=== PATIENT | male | born 1980 | race Caucasian/White ===

== ENCOUNTER 2020-12-19 13:12 | Emergency (ER) | payer OTHER, SELFPAY ==
[2020-12-19 13:14] VITALS: BP 122/75; PULSE 86; RESP 24; TEMP 36.9; O2SAT 97
--- NOTE | 2020-12-19 13:40 | ED_ITS ---
HPI - Fall General Chief Complaint: Fall Stated Complaint: fell at work, landed on tailbone, back+head pain Time Seen by Provider: 12/19/20 13:28 Source: patient Mode of arrival: Ambulatory Limitations: no limitations History of Present Illness HPI Narrative: Patient is a 40-year-old male here for evaluation of injuries that he sustained while he was at work. 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 He was walking down some wood stairs that were outside that were slightly wet and he slipped and fell and tumbled down some stairs. He did not hit his head but did injure his lower back and his left wrist. He was able to get up and walk afterwards. Shortly later he again slipped this time falling and hitting his head. There was no loss of consciousness. It quite a bit of discomfort in his legs afterwards. Specifically his right leg. He does have a history of sciatic pain in his right leg in the seems to have exacerbated that. He also has a history of migraines and the fall triggered a migraine. Also has a history of anxiety and started having panic attack afterwards as well. Related Data Previous Rx's Medication Instructions Recorded oxycodone-acetaminophen [Percocet] 1 tab PO Q8H PRN #10 tab 12/19/20 Allergies Allergy/AdvReac Type Severity Reaction Status Date / Time INGREDIENT: NKDA - NO KNOWN Allergy Unknown Uncoded 11/05/17 12:04 DRUG ALLERGIES Review of Systems Constitutional Constitutional: Denies fever(s) and Reports headache(s) Eyes Eyes: Denies change in vision ENT Ears, Nose, Mouth, and Throat: Denies vertigo, Denies dizziness, Reports headache(s) and Denies sore throat Cardiovascular Cardiovascular: Denies chest pain and Denies dyspnea Respiratory Respiratory: Denies dyspnea Gastrointestinal Gastrointestinal: Denies abdominal pain Musculoskeletal Musculoskeletal: Reports back pain and Reports radiating pain into limb Comments: Left wrist pain Integumentary/Breasts Skin/Breast: Denies lesions and Denies rash Neurologic Neurologic: Denies vertigo, Denies dizziness and Reports headache(s) Psychiatric Psychiatric: Reports anxiety Endocrine Endocrine: Reports system reviewed and no additional complaints, except as documented Hematologic/Lymphatic On Anticoagulants: No Allergic/Immunologic Allergic/Immunologic: Reports system reviewed and no additional complaints, except as documented Patient History Medical History Anxiety Low back pain Migraines Social History Smoking Status: Never smoker Smoking Status: Never smoker Exam Initial Vital Signs Initial Vital Signs: Vital Signs Temperature 98.4 F 12/19/20 13:14 Pulse Rate 86 12/19/20 13:14 Respiratory Rate 24 12/19/20 13:14 Blood Pressure 122/75 12/19/20 13:14 Pulse Oximetry 97 12/19/20 13:14 Const General: cooperative and comfortable Limitations: mental status not altered HENMT Head: normal to inspection and normocephalic Chest Chest: No tenderness Resp Effort & Inspection: normal respiratory effort Auscultation: clear to auscultation bilaterally Cardio Rate: regular rate Rhythm: regular rhythm GI Inspection: non-distended Back/Spine/Pelvis Cervical Spine: No cervical muscular tenderness and No cervical spinal tenderness Thoracic/Lumbar Spine: paraspinal tenderness (Lumbar region on right), No thoracic spinal tenderness and No lumbar spinal tenderness Skin Lesions: no lesions Rashes: no rashes Neuro General: patient alert, patient awake and patient oriented x3 Gait: normal gait Extrem General: normal to inspection and capillary refill normal Other: Tenderness to palpation along the base of the 5th metacarpal. Psych Appearance: grossly normal and well kempt Scores GCS Alphonse coma scale eye opening: Spontaneous Greenwood coma scale verbal response: Orientated Alphonse coma scale motor response: Obey commands Greenwood coma scale total score: 15 Nexus Score for C-Spine Focal Neurologic deficit present: No Midline spinal tenderness present: No Altered level of conciousness present: No Intoxication present: No Distracting Injury Present: No Nexus Criteria for C-spine: 0 Course Orders Ordered: Discontinued Medications Diphenhydramine HCl (Diphenhydramine 50 Mg/Ml Vial) 25 mg IV NOW ONE Stop: 12/19/20 13:42 Last Admin: 12/19/20 14:43 Dose: 25 mg Documented by: ASOTN Hydromorphone HCl (Hydromorphone 1 Mg Inj) 1 mg IV NOW ONE Stop: 12/19/20 15:55 Last Admin: 12/19/20 16:10 Dose: 1 mg Documented by: ASTON Sodium Chloride (Normal Saline 0.9%) 1,000 mls @ 1,000 mls/hr IV BOLUS ONE Stop: 12/19/20 14:40 Last Infusion: 12/19/20 16:09 Dose: 0 mls/hr Documented by: Admin: 12/19/20 14:42 Dose: 1,000 mls/hr Documented by: ASTON Ketorolac Tromethamine (Ketorolac 30 Mg/Ml Vial) 30 mg IV NOW ONE Stop: 12/19/20 13:42 Last Admin: 12/19/20 14:43 Dose: 30 mg Documented by: ASTON Metoclopramide HCl (Metoclopramide 10 Mg/2 Ml Inj) 10 mg IV NOW ONE Stop: 12/19/20 13:42 Last Admin: 12/19/20 14:43 Dose: 10 mg Documented by: ASTON Vital Signs Vital signs: Vital Signs - 8 hr 12/19/20 13:14 Temperature 98.4 F Pulse Rate 86 Respiratory Rate 24 Blood Pressure 122/75 Pulse Oximetry 97 MDM - Fall Imaging Data Extremity x-ray #1: Radiologist's Impression: [address] [id number] ReportSigned Patient: Bjorn AntoineKushalR#: [id number]: 1980Acct:[id number]/Sex: 40 / MDate of Service: 12/19/20Loc: EDAccession Number: [id number] Procedure: XR hand LT min 3V Ordering Provider: Maikol Palomo D.O. PROCEDURE: XR HAND LT MIN 3V INDICATIONS: 5th metacarpal pain after fall TECHNIQUE: 3 views of the hand(s) acquired. COMPARISON: None. FINDINGS: Bones: No fractures or dislocations. Carpal bones are normally aligned. No suspicious bony lesions. Soft tissues: No suspicious soft tissue calcifications. IMPRESSION: No gross acute left hand fracture or dislocation. Dictated by: Marcial Hernandez M.D. on 12/19/2020 at 14:59 Approved by: Marcial Hernandez M.D. on 12/19/2020 at 15:00 Lumbar spine x-ray: Radiologist's Impression: [address] [id number] ReportSigned Patient: Bjorn AntoineKushalR#: [id number]: 1980Acct:[id number]/Sex: 40 / MDate of Service: 12/19/20Loc: EDAccession Number: [id number] Procedure: XR lumbar spine 2-3V Ordering Provider: Maikol Palomo D.O. PROCEDURE: XR LUMBAR SPINE 2-3V INDICATIONS: Lower back pain after fall TECHNIQUE: 3 views of the lumbar spine were acquired. COMPARISON: None. FINDINGS: Bones: 5 [id number] vertebrae are present. There is normal bony alignment. No vertebral body compression fractures. Mild degenerative endplate changes and bilateral facet arthrosis at L4-5 and L5-S1 levels are seen. No suspicious bony lesions. Soft tissues: Overlying bowel gas pattern is normal. No suspicious soft tissue calcifications. IMPRESSION: Mild degenerative endplate changes at L4-5 and L5-S1 levels with mild bilateral facet arthrosis. No compression fracture or spondylolisthesis. Dictated by: Marcial Hernandez M.D. on 12/19/2020 at 14:51 Approved by: Marcial Hernandez M.D. on 12/19/2020 at 14:59 MDM Narrative Medical decision making narrative: X-rays are unremarkable. Is having a migraine which he states is on of his typical migraines. This resolved with medication provided here in the ER. He states that he had only slight improvement of his right leg pain after medications. I have low suspicion for cauda equina. The rest of his physical exam is unremarkable. Low suspicion for pelvic fractures. His C-spine was cleared by nexus criteria. I feel we can hold on head CT. L and I paperwork was completed by patient. He was given return precautions and follow-up instructions. He expressed understanding and agreement. Discharge Plan Departure Patient Disposition: Home Clinical Impression: Lower back pain, Headache, Fall Instructions: How to Prevent Falls Activity Restrictions/Additional Instructions: I do recommend that you contact your primary provider for a follow-up. Return to the emergency department for any new or worsening symptoms. Prescriptions: New oxycodone-acetaminophen [Percocet] 5-325 mg tablet 1 tab PO Q8H PRN (Reason: pain) Qty: 10 RF: 0 Stand Alone Forms: Work Release Note
--- NOTE | 2020-12-19 14:39 | PC.NURSE ---
patient ambulated self to restroom. returned to room with urine sample. steady gate observed.
[2020-12-19] MEDS: SODIUM CHLORIDE 0.9% 1,000 ML 1000 ML IV (14:42)
[2020-12-19] MEDS: METOCLOPRAMIDE 10 MG/2 ML INJ IV (14:43)
[2020-12-19] MEDS: diphenhydrAMINE 50 MG/ML VIAL 25 MG IV (14:43)
[2020-12-19] MEDS: KETOROLAC 30 MG/ML VIAL IV (14:43)
--- NOTE | 2020-12-19 15:23 | PC.NURSE ---
no visible injury noted to tailbone.
[2020-12-19] MEDS: HYDROMORPHONE 1 MG INJ IV (16:10)
[2020-12-19 17:43] VITALS: BP 122/69; PULSE 77; RESP 16; O2SAT 99
== END 2020-12-19 17:45 | disposition home or self-care (01) ==
PROVIDERS: Emergency Provider Emergency Medicine
DX: M54.5 Low back pain (principal); M25.532 Pain in left wrist; R51.9 Headache, unspecified; W01.0XXA Fall on same level from slipping, tripping and stumbling without subsequent striking against object, initial encounter; Y99.0 Civilian activity done for income or pay
CPT/HCPCS: 36415; 72100; 73130; 96361; 96374; 96375; 99284; J1170; J1200; J1885; J2765

== ENCOUNTER 2020-12-22 11:04 | Emergency (ER) | payer OTHER, SELFPAY ==
[2020-12-22 11:05] VITALS: BP 138/86; PULSE 86; RESP 14; TEMP 36.7; O2SAT 99; BMI 37.5
--- NOTE | 2020-12-22 13:09 | ED.RECABL ---
HPI - Recheck/Abnormal Lab/Rx General Chief Complaint: Recheck/Abnormal Lab/Rx Stated Complaint: here friday for L&I, still in pain Time Seen by Provider: 12/22/20 13:08 Source: patient Mode of arrival: Ambulatory Limitations: no limitations History of Present Illness HPI narrative: Is a 40-year-old male who returns for low back/coccyx pain after an injury that was sustained while at work. Patient had a fall last Friday. He has had new bruising over the buttock he has significant pain with seated position but also with lifting his legs are crossing them he has pain not just in the coccyx but up into the L4-L5 region. Patient states he has some new numbness tingling sensation radiating down both legs. He is unsure but thinks maybe his right leg is slightly weaker than the left. Patient denies fevers. He denies other injury. No nausea or vomiting. No bowel or bladder incontinence. Patient denies any anticoagulants. He has been taking oxycodone p.o. which is helpful for the pain but still is quite uncomfortable. He has follow-up set up in the next week. According to his last visit he does have some history of sciatica in the right leg. He also has a history of migraines, anxiety and panic attacks. Patient denies any back surgery in the past. Allergies include Vicodin which makes him itchy. Related Data Home Medications Medication Instructions Recorded Confirmed alprazolam 0.5 mg PO TID PRN 12/22/20 12/22/20 trazodone 25 mg PO BEDTIME 12/22/20 12/22/20 Previous Rx's Medication Instructions Recorded oxycodone-acetaminophen [Percocet] 1 tab PO Q8H PRN #10 tab 12/19/20 docusate sodium [Colace] 100 mg PO DAILY #20 cap 12/22/20 hydroxyzine pamoate [Vistaril] 25 mg PO QID PRN #20 cap 12/22/20 oxycodone 5 mg PO Q6H PRN #20 tab 12/22/20 Allergies Allergy/AdvReac Type Severity Reaction Status Date / Time hydrocodone [From Vicodin] AdvReac Mild ITCHING Verified 12/22/20 11:17 Review of Systems Review of Systems ROS Unobtainable: All systems reviewed & are unremarkable except as noted in HPI and below Patient History Medical History Anxiety Low back pain Migraines Social History Smoking Status: Never smoker Smoking Status: Never smoker alcohol intake frequency: 0-2 drinks per day Substance Use Type: does not use Exam Narrative Exam Narrative: GENERAL: Alert and oriented x three, well-nourished male in mild to moderate distress. HEENT: Head normocephalic, atraumatic, EOMI, pupils reactive, face symmetric, moist mucous membranes NECK: Supple, full range of motion CARDIOVASCULAR: Regular rate and rhythm without murmurs, rubs or gallops. RESPIRATORY: Breath sounds equal bilaterally, no wheezes rales or rhonchi. ABDOMEN: Soft, nontender. Normoactive bowel sounds all 4 quadrants. No guarding or rebound, rigidity, no mass BACK: No cervical, thoracic vertebral point tenderness. Patient does have some tenderness all L4-L5 although greater over the sacrum and coccyx. Patient does have about 2 cm x 3 cm of bruising over the left buttock in almost vertical linear pattern all adjacent to the crease. There is no obvious hematoma palpated but there is some fullness to the upper buttocks. Patient is quite tender on digital rectal exam over the buttocks themselves when there is pressure from my hand but is nontender in the rectum patient has good muscle tone. Patient has normal range of motion, is able to roll himself over on the bed without any assistance. Muscle strength is 5/5 in lower extremities, DTRs are 2/4 bilateral lower extremities. Sensation is intact in the lower extremities. No saddle anesthesia. : No CVA tenderness EXTREMITIES: Normal range of motion, no clubbing or edema. Neurovascularly intact. NEUROLOGICAL: Cranial nerves II through XII grossly intact. Moving all extremities SKIN: Warm, dry, no petechiae, no rashes or lesions, no other lesions noted. Initial Vital Signs Initial Vital Signs: Vital Signs Temperature 98.1 F 12/22/20 11:05 Pulse Rate 86 12/22/20 11:05 Respiratory Rate 14 12/22/20 11:05 Blood Pressure 138/86 12/22/20 11:05 Pulse Oximetry 99 12/22/20 11:05 Course Orders Ordered: ED Orders 12/22/20 13:21 CT lumbar spine wo con Stat CT sacrum Stat Discontinued Medications Hydroxyzine Pamoate (Hydroxyzine Pamoate 25 Mg Capsule) 25 mg PO NOW ONE Stop: 12/22/20 13:22 Last Admin: 12/22/20 14:03 Dose: 25 mg Documented by: JESSICA Oxycodone HCl (Oxycodone Ir 5 Mg Tablet) 10 mg PO NOW ONE Stop: 12/22/20 14:01 Last Admin: 12/22/20 14:02 Dose: 10 mg Documented by: JESSICA Vital Signs Vital signs: Vital Signs - 8 hr 12/22/20 14:26 Pulse Rate 60 Blood Pressure 145/63 H Pulse Oximetry 99 MDM - Recheck/Abnormal Lab/Rx Imaging Data CT Lspine: Radiologist's Impression: [address] [id number] Scan ReportSigned Patient: Bjorn Antoine#: [id number]: 1980Acct:[id number]/Sex: 40 / MDate of Service: 12/22/20Loc: EDAccession Number: [id number] Procedure: CT lumbar spine wo con Ordering Provider: Roberta Null D.O. PROCEDURE: CT LUMBAR SPINE WO CON INDICATIONS: L4/L5 pain with coccyx pain, bruising, tingling both legs. TECHNIQUE: Noncontrast 3 mm thick sections acquired from the T12 level to the sacrum. Sagittal and coronal reformats were constructed. For radiation dose reduction, the following was used: automated exposure control. COMPARISON: None. FINDINGS: Image quality: Excellent. Bones: No fracture identified. Normal lumbar vertebral body height and alignment. Intervertebral disc spaces are congruent and maintained. No significant degenerative changes of the intervertebral disc spaces, end plates, or facets. Soft tissues: No retroperitoneal masses or hematomas. Visualized aorta is normal in caliber. IMPRESSION: No acute or otherwise significant finding. Dictated by: Jaden Conde M.D. on 12/22/2020 at 14:00 Approved by: Jaden Conde M.D. on 12/22/2020 at 14:01 CT sacrum: Radiologist's Impression: [address] [id number] Scan ReportSigned Patient: Bjorn Antoine#: [id number]: 1980Acct:[id number]/Sex: 40 / MDate of Service: 12/22/20Loc: EDAccession Number: [id number] Procedure: CT sacrum Ordering Provider: Roberta Null D.O. PROCEDURE: CT SACRUM INDICATIONS: L4/L5/sacrum/coccyx pain, tingling TECHNIQUE: Noncontrast 3 mm thick sections acquired through the sacrum and coccyx, with sagittal and oblique coronal reformats then constructed. For radiation dose reduction, the following was used: automated exposure control. COMPARISON: None. FINDINGS: Image quality: Excellent. Bones: There is an acute fracture of the 1st coccygeal segment, oriented obliquely, traversing the 1st coccygeal segment from anterior and superior to posterior and inferior. The fracture plane is best appreciated on series 8 images 29-31). The fracture is mildly comminuted. The fracture fragments are mildly displaced. No suspicious bony lesions. Sacroiliac joints appear intact bilaterally. The sacrum is intact. The remaining coccygeal elements are intact and in normal alignment. Soft tissues: Regional soft tissues are within normal limits IMPRESSION: Acute mildly displaced and minimally comminuted fracture of the 1st coccygeal segment. Dictated by: Jaden Conde M.D. on 12/22/2020 at 13:58 Approved by: Jaden Conde M.D. on 12/22/2020 at 14:00 [facility] Narrative Medical decision making narrative: 40-year-old male with recent traumatic fall with increasing pain, describes tingling sensations/numbness down his lower extremities. Patient's muscle strength is appropriate. Rectal exam does not show any loss of tone. He does not have any neurologic changes that would prompt me to order MRI at this time but CT was obtained as he did has some L4-L5 tenderness. Patient does not have any sacral or lumbar fractures. It is noted that he has accommodated coccygeal fracture which is likely the main source of his pain. Others potential the patient could have a bulged or herniated disc and was recommended to still follow up with L and I. All questions are answered return precautions discussed. Patient did request additional pain medication and did have improvement with the Vistaril as well. Was given additional 14 tablets. He only received 10 tablets on his initial vision on the . Discharge Plan Departure Patient Disposition: Home Clinical Impression: Closed fracture of coccyx Instructions: DI for Coccyx Fracture Activity Restrictions/Additional Instructions: Follow-up with L&I provider. If you would like do not already have orthopedic surgery follow-up this is available and referrals included below. Continue pain medication as prescribed. I would also recommend you take a stool softener such as Colace 1-2 times daily until stools are soft and regular. If your constipated this can make your pain worse narcotic pain medication does cause constipation. Prescriptions sent to [facility]. Continue to use a donut or pillow while seated, and sit in positions that are preferrable. Please return for fevers, rapidly worsening pain, loss of sensation, inability to lift or move your legs, loss of bowel or bladder control or incontinence, or other new or concerning symptoms. Prescriptions: New docusate sodium [Colace] 100 mg capsule 100 mg PO DAILY Qty: 20 RF: 0 oxycodone 5 mg tablet 5 mg PO Q6H PRN (Reason: pain) Qty: 20 RF: 0 hydroxyzine pamoate [Vistaril] 25 mg capsule 25 mg PO QID PRN (Reason: muscle spasm) Qty: 20 RF: 0 No Action oxycodone-acetaminophen [Percocet] 5-325 mg tablet 1 tab PO Q8H PRN (Reason: pain) Qty: 10 RF: 0 trazodone 50 mg tablet 25 mg PO BEDTIME RF: 0 alprazolam 0.5 mg tablet 0.5 mg PO TID PRN (Reason: Anxiety) RF: 0 Referrals: Luz Elena Ba MD [Physician] - Roberta Luke DO [Primary Care Provider] -
--- NOTE | 2020-12-22 13:21 | DI.CT.S_ITS ---
PROCEDURE: CT SACRUM INDICATIONS: L4/L5/sacrum/coccyx pain, tingling TECHNIQUE: Noncontrast 3 mm thick sections acquired through the sacrum and coccyx, with sagittal and oblique coronal reformats then constructed. For radiation dose reduction, the following was used: automated exposure control. COMPARISON: None. FINDINGS: Image quality: Excellent. Bones: There is an acute fracture of the 1st coccygeal segment, oriented obliquely, traversing the 1st coccygeal segment from anterior and superior to posterior and inferior. The fracture plane is best appreciated on series 8 images 29-31). The fracture is mildly comminuted. The fracture fragments are mildly displaced. No suspicious bony lesions. Sacroiliac joints appear intact bilaterally. The sacrum is intact. The remaining coccygeal elements are intact and in normal alignment. Soft tissues: Regional soft tissues are within normal limits IMPRESSION: Acute mildly displaced and minimally comminuted fracture of the 1st coccygeal segment. Dictated by: Jaden Conde M.D. on 12/22/2020 at 13:58 Approved by: Jaden Conde M.D. on 12/22/2020 at 14:00
--- NOTE | 2020-12-22 13:21 | DI.CT.S_ITS ---
PROCEDURE: CT LUMBAR SPINE WO CON INDICATIONS: L4/L5 pain with coccyx pain, bruising, tingling both legs. TECHNIQUE: Noncontrast 3 mm thick sections acquired from the T12 level to the sacrum. Sagittal and coronal reformats were constructed. For radiation dose reduction, the following was used: automated exposure control. COMPARISON: None. FINDINGS: Image quality: Excellent. Bones: No fracture identified. Normal lumbar vertebral body height and alignment. Intervertebral disc spaces are congruent and maintained. No significant degenerative changes of the intervertebral disc spaces, end plates, or facets. Soft tissues: No retroperitoneal masses or hematomas. Visualized aorta is normal in caliber. IMPRESSION: No acute or otherwise significant finding. Dictated by: Jaden Conde M.D. on 12/22/2020 at 14:00 Approved by: Jaden Conde M.D. on 12/22/2020 at 14:01
[2020-12-22] MEDS: OXYCODONE IR 5 MG TABLET 10 MG PO (14:02)
[2020-12-22] MEDS: hydrOXYzine pamoate 25 MG CAPSULE PO (14:03)
[2020-12-22 14:26] VITALS: BP 145/63; PULSE 60; O2SAT 99
== END 2020-12-22 14:27 | disposition home or self-care (01) ==
PROVIDERS: Emergency Provider Emergency Medicine; PCP Family Medicine
DX: S32.2XXA Fracture of coccyx, initial encounter for closed fracture (principal); R20.2 Paresthesia of skin; W19.XXXA Unspecified fall, initial encounter
CPT/HCPCS: 72131; 99284

== ENCOUNTER 2021-05-19 18:39 | Emergency (ER) | payer OTHER, SELFPAY ==
[2021-05-19 18:56] VITALS: BP 132/90; PULSE 89; RESP 22; TEMP 36.8; O2SAT 97; BMI 34.9
--- NOTE | 2021-05-19 19:26 | ED.PSYCH ---
HPI - Psych <Maikol Palomo, DO - Last Filed: 05/20/21 19:25> General Chief Complaint: Psychiatric Symptoms Stated Complaint: SUICIDAL THOUGHTS Time Seen by Provider: 05/19/21 19:22 Source: patient Mode of arrival: Ambulatory History of Present Illness HPI Narrative: Patient is a 41-year-old male. Has a prior history of mental health issues. Does see a psychiatrist. His mental health medications are managed by his primary doctor. Patient states that approximately 1 week ago his left him. They have had some marital issues in the past but thinks became more final 1 week ago. He has also been on disability from work secondary to an accident that he had several weeks ago. He also ran out of his lamotrigine on Friday. He was at 100 mg a day of this. He states that the prescription ran out. He had no refills him when he contacted to get it refilled the doctor was on vacation. He stated that when stay is when things started to become much worse. His anxiety and depression became worse. He did consider driving to the [employer] and jumping off of it however his sister called him and he spent a long time talking over the phone. He has not had suicidal ideation as bad as that evening but things still difficult for him. He stated that today he started to have thoughts about his life and about killing himself so he decided to come to the emergency department for evaluation. Related Data Home Medications Medication Instructions Recorded Confirmed alprazolam 0.5 mg tablet 0.5 mg PO TID PRN 12/22/20 05/20/21 trazodone 50 mg tablet 25 mg PO BEDTIME 12/22/20 05/20/21 buspirone 7.5 mg tablet 7.5 mg PO TID 05/20/21 05/20/21 cyclobenzaprine 10 mg tablet 10 mg PO TID PRN 05/20/21 05/20/21 diclofenac potassium 50 mg tablet 50 mg PO TID PRN 05/20/21 05/20/21 fluoxetine 20 mg capsule 20 mg PO DAILY 05/20/21 05/20/21 indomethacin 75 mg 75 mg PO BID PRN 05/20/21 05/20/21 capsule,extended release lamotrigine 25 mg tablet 100 mg PO DAILY 05/20/21 05/20/21 propranolol 10 mg tablet 10 mg PO BID 05/20/21 05/20/21 Previous Rx's Medication Instructions Recorded docusate sodium 100 mg capsule 100 mg PO DAILY #20 cap 12/22/20 (Colace) oxycodone 5 mg tablet 5 mg PO Q6H PRN #20 tab 12/22/20 alprazolam 0.5 mg tablet 0.5 mg PO TID PRN #10 tab 05/20/21 buspirone 7.5 mg tablet 7.5 mg PO TID #10 tab 05/20/21 fluoxetine 20 mg tablet 20 mg PO DAILY #3 tab 05/20/21 lamotrigine 100 mg tablet 100 mg PO DAILY #3 tab 05/20/21 trazodone 50 mg tablet 25 mg PO BEDTIME #3 tab 05/20/21 Allergies Allergy/AdvReac Type Severity Reaction Status Date / Time hydrocodone [From Vicodin] AdvReac Mild ITCHING Verified 05/19/21 18:56 Review of Systems <DO Lindsey Russell Last Filed: 05/20/21 19:25> Cardiovascular Cardiovascular: Reports system reviewed and no additional complaints, except as documented Respiratory Respiratory: Reports system reviewed and no additional complaints, except as documented Gastrointestinal Gastrointestinal: Reports system reviewed and no additional complaints, except as documented Psychiatric Psychiatric: Reports system reviewed and no additional complaints, except as documented Hematologic/Lymphatic On Anticoagulants: No Patient History <DO Lindsey Russell Last Filed: 05/20/21 19:25> Medical History Anxiety Low back pain Migraines Social History Smoking Status: Never smoker Smoking Status: Never smoker alcohol intake frequency: 0-2 drinks per day Substance Use Type: does not use Exam <DO Lindsey Russell Last Filed: 05/20/21 19:25> Initial Vital Signs Initial Vital Signs: Vital Signs Temperature 98.2 F 05/19/21 18:56 Pulse Rate 89 05/19/21 18:56 Respiratory Rate 22 05/19/21 18:56 Blood Pressure 132/90 05/19/21 18:56 Pulse Oximetry 97 05/19/21 18:56 HENMT Head: normal to inspection and normocephalic Eyes General: appearance normal, both eyes and all related structures Resp Effort & Inspection: normal respiratory effort Cardio Rate: regular rate Skin General: no rashes or lesions noted Neuro General: patient alert, patient awake and patient oriented x3 Psych Appearance: grossly normal and well kempt Mental Status: mental status grossly normal Speech and Movement: speech and movement normal, not agitated and not restless Affect: sad Attitude: cooperative Thought Process: normal Thought Content: suicidality <Clifford Avila, DO - Last Filed: 05/20/21 13:20> Initial Vital Signs Initial Vital Signs: Vital Signs Temperature 98.2 F 05/19/21 18:56 Pulse Rate 89 05/19/21 18:56 Respiratory Rate 22 05/19/21 18:56 Blood Pressure 132/90 05/19/21 18:56 Pulse Oximetry 97 05/19/21 18:56 Course <Maikol Palomo DO - Last Filed: 05/20/21 19:25> Orders Ordered: ED Orders 05/20/21 11:14 COVID19 -Nasal swab/Pre-Proc Stat Discontinued Medications Alprazolam (Alprazolam 0.5 Mg Tablet) 0.5 mg PO TID PRN PRN Reason: Anxiety Last Admin: 05/20/21 08:49 Dose: 0.5 mg Documented by: JESSICA Buspirone HCl (Buspirone 5 Mg Tablet) 7.5 mg PO TID [facility] Last Admin: 05/20/21 08:50 Dose: 7.5 mg Documented by: JESSICA Cyclobenzaprine HCl (Cyclobenzaprine 10 Mg Tablet) 10 mg PO TID PRN PRN Reason: back spasms Fluoxetine HCl (Fluoxetine 20 Mg Capsule) 20 mg PO DAILY [facility] Last Admin: 05/20/21 08:51 Dose: 20 mg Documented by: JESSICA Indomethacin (Indomethacin 25 Mg Capsule) 75 mg PO BID PRN PRN Reason: Pain, Mild (1-3) Last Admin: 05/20/21 08:52 Dose: 75 mg Documented by: JESSICA Lamotrigine (Lamotrigine 100 Mg Tablet) 100 mg PO NOW ONE Stop: 05/19/21 19:27 Last Admin: 05/19/21 19:45 Dose: 100 mg Documented by: TONYA Lamotrigine (Lamotrigine 100 Mg Tablet) 100 mg PO DAILY [facility] Last Admin: 05/20/21 08:52 Dose: 100 mg Documented by: JESSICA Lorazepam (Lorazepam 0.5 Mg Tablet) 0.5 mg PO NOW ONE Stop: 05/19/21 19:27 Last Admin: 05/19/21 19:46 Dose: 0.5 mg Documented by: TONYA Propranolol HCl (Propranolol 10 Mg Tablet) 10 mg PO BID [facility] Last Admin: 05/20/21 08:52 Dose: 10 mg Documented by: JESSICA Trazodone HCl (Trazodone 50 Mg Tablet) 50 mg PO BEDTIME [facility] Vital Signs Vital signs: Vital Signs - 8 hr 05/20/21 10:30 Pulse Rate 60 Respiratory Rate 22 Blood Pressure 136/76 Pulse Oximetry 100 <Clifford Avila DO - Last Filed: 05/20/21 13:20> Course Course Narrative: 0700 -I received the patient in sign-out from Dr. Palomo. I performed an independent history and physical exam. The patient is feeling much better but still not at baseline. He is not currently having suicidal ideation. He has been given his nighttime and daytime medications. We are awaiting social Work evaluation Social Work has been significant amount of time with the patient and is working on finding placement at various local facilities. In the and she is able to secure a bed at the [facility]. Orders Ordered: ED Orders 05/20/21 11:14 COVID19 -Nasal swab/Pre-Proc Stat Discontinued Medications Alprazolam (Alprazolam 0.5 Mg Tablet) 0.5 mg PO TID PRN PRN Reason: Anxiety Last Admin: 05/20/21 08:49 Dose: 0.5 mg Documented by: JESSICA Buspirone HCl (Buspirone 5 Mg Tablet) 7.5 mg PO TID [facility] Last Admin: 05/20/21 08:50 Dose: 7.5 mg Documented by: JESSICA Cyclobenzaprine HCl (Cyclobenzaprine 10 Mg Tablet) 10 mg PO TID PRN PRN Reason: back spasms Fluoxetine HCl (Fluoxetine 20 Mg Capsule) 20 mg PO DAILY [facility] Last Admin: 05/20/21 08:51 Dose: 20 mg Documented by: JESSICA Indomethacin (Indomethacin 25 Mg Capsule) 75 mg PO BID PRN PRN Reason: Pain, Mild (1-3) Last Admin: 05/20/21 08:52 Dose: 75 mg Documented by: JESSICA Lamotrigine (Lamotrigine 100 Mg Tablet) 100 mg PO NOW ONE Stop: 05/19/21 19:27 Last Admin: 05/19/21 19:45 Dose: 100 mg Documented by: TONYA Lamotrigine (Lamotrigine 100 Mg Tablet) 100 mg PO DAILY [facility] Last Admin: 05/20/21 08:52 Dose: 100 mg Documented by: JESSICA Lorazepam (Lorazepam 0.5 Mg Tablet) 0.5 mg PO NOW ONE Stop: 05/19/21 19:27 Last Admin: 05/19/21 19:46 Dose: 0.5 mg Documented by: TONYA Propranolol HCl (Propranolol 10 Mg Tablet) 10 mg PO BID [facility] Last Admin: 05/20/21 08:52 Dose: 10 mg Documented by: JESSICA Trazodone HCl (Trazodone 50 Mg Tablet) 50 mg PO BEDTIME [facility] Vital Signs Vital signs: Vital Signs - 8 hr 05/20/21 10:30 Pulse Rate 60 Respiratory Rate 22 Blood Pressure 136/76 Pulse Oximetry 100 MDM - Psych <Maikol Palomo DO - Last Filed: 05/20/21 19:25> Lab Data Attestation: I reviewed the patient's lab results. Result diagrams: 05/19/21 20:02 05/19/21 20:02 Labs: Lab Results 05/19/21 05/19/21 05/20/21 Range/Units 20:02 20:02 07:19 WBC 8.7 (4.5-11.0) X10^3/uL RBC 4.92 (4.5-5.9) X10^6/uL Hgb 15.6 (13.5-17.5) g/dL Hct 44.6 (41-53) % MCV 90.8 (80-100) fL MCH 31.7 (26-34) PG MCHC 34.9 (30-36) % RDW 14.2 (11.6-14.8) % Plt Count 218 (150-400) X10^3/uL Neut % (Auto) 44.4 L (50-75) % Lymph % (Auto) 47.0 H (25-40) % [place] % (Auto) 4.4 (3-14) % Eos % (Auto) 3.3 (2-4) % Baso % (Auto) 0.9 (0-2) % Neut # (Auto) 3800 (9730-4311) /uL Lymph # (Auto) 4100 (3772-4463) /uL [place] # (Auto) 400 (0-900) /uL Eos # (Auto) 300 (0-450) /uL Baso # (Auto) 100 (0-100) /uL Sodium 144 (137-145) mmol/L Potassium 3.9 (3.4-5.1) mmol/L Chloride 108 H (98-107) mmol/L Carbon Dioxide 26 (22-32) mmol/L BUN 13 (9-20) mg/dL Creatinine 0.80 (0.66-1.25) mg/dL Estimated GFR > 60.0 (>60) mL/min BUN/Creatinine Ratio 16.3 (6-22) Glucose 92 (70-100) mg/dL Calcium 9.5 (8.4-10.2) mg/dL Total Bilirubin 0.2 (0.2-1.3) mg/dL AST 23 (17-59) IU/L ALT 24 (<50) IU/L Alkaline Phosphatase 68 (38-126) U/L Total Protein 7.1 (6.3-8.2) g/dL Albumin 4.4 (3.5-5.0) g/dL Globulin 2.7 (1.7-4.1) g/dL Albumin/Globulin Ratio 1.6 (1.0-2.8) Lipase 161 (23-300) U/L U Opiates 300ng/mL cut Negative (Negative) Ur Oxycodone Screen Negative (Negative) Urine Methadone Screen Negative (Negative) Ur Barbiturates Screen Negative (Negative) U Tricyclic Antidepress Negative (Negative) Ur Phencyclidine Scrn Negative (Negative) Ur Amphetamines Screen Negative (Negative) U Methamphetamines Scrn Negative (Negative) Ur MDMA Scrn (Ecstasy) Negative (Negative) U Benzodiazepines Scrn Positive H (Negative) Urine Cocaine Screen Positive H (Negative) U Marijuana (THC) Screen Negative (Negative) Ethyl Alcohol < 10 ( - 10) mg/dL SARS-CoV-2 (PCR) (Negative) 05/20/21 Range/Units 11:14 WBC (4.5-11.0) X10^3/uL RBC (4.5-5.9) X10^6/uL Hgb (13.5-17.5) g/dL Hct (41-53) % MCV (80-100) fL MCH (26-34) PG MCHC (30-36) % RDW (11.6-14.8) % Plt Count (150-400) X10^3/uL Neut % (Auto) (50-75) % Lymph % (Auto) (25-40) % [place] % (Auto) (3-14) % Eos % (Auto) (2-4) % Baso % (Auto) (0-2) % Neut # (Auto) (1242-6022) /uL Lymph # (Auto) (9456-6996) /uL [place] # (Auto) (0-900) /uL Eos # (Auto) (0-450) /uL Baso # (Auto) (0-100) /uL Sodium (137-145) mmol/L Potassium (3.4-5.1) mmol/L Chloride (98-107) mmol/L Carbon Dioxide (22-32) mmol/L BUN (9-20) mg/dL Creatinine (0.66-1.25) mg/dL Estimated GFR (>60) mL/min BUN/Creatinine Ratio (6-22) Glucose (70-100) mg/dL Calcium (8.4-10.2) mg/dL Total Bilirubin (0.2-1.3) mg/dL AST (17-59) IU/L ALT (<50) IU/L Alkaline Phosphatase (38-126) U/L Total Protein (6.3-8.2) g/dL Albumin (3.5-5.0) g/dL Globulin (1.7-4.1) g/dL Albumin/Globulin Ratio (1.0-2.8) Lipase (23-300) U/L U Opiates 300ng/mL cut (Negative) Ur Oxycodone Screen (Negative) Urine Methadone Screen (Negative) Ur Barbiturates Screen (Negative) U Tricyclic Antidepress (Negative) Ur Phencyclidine Scrn (Negative) Ur Amphetamines Screen (Negative) U Methamphetamines Scrn (Negative) Ur MDMA Scrn (Ecstasy) (Negative) U Benzodiazepines Scrn (Negative) Urine Cocaine Screen (Negative) U Marijuana (THC) Screen (Negative) Ethyl Alcohol ( - 10) mg/dL SARS-CoV-2 (PCR) Negative (Negative) MDM Narrative Medical decision making narrative: Patient has a history of anxiety and depression. Had a very intense suicidal ideation a couple days ago but that seems to have improved however today he again had thoughts of hurting himself. No specific plan. He does seem to have quite a bit and insight. He states that if he hurt himself it would ?affect a lot of people ?he stated that he was not 100% convinced that he needed/wanted to be admitted to the hospital however would like to talk with someone about his symptoms. Patient is alert oriented x3. Has a GCS 15. Is calm and cooperative. After discussion with the patient the plan will be is to have him stay in the emergency department this evening and have social Work see him tomorrow. He was given his lamotrigine in some Ativan. He has been sleeping all night without any issues. Care turned over to Dr. Avila to follow up and disposition. <Clifford Avila, DO - Last Filed: 05/20/21 13:20> Lab Data Labs: Lab Results 05/19/21 05/19/21 05/20/21 Range/Units 20:02 20:02 07:19 WBC 8.7 (4.5-11.0) X10^3/uL RBC 4.92 (4.5-5.9) X10^6/uL Hgb 15.6 (13.5-17.5) g/dL Hct 44.6 (41-53) % MCV 90.8 (80-100) fL MCH 31.7 (26-34) PG MCHC 34.9 (30-36) % RDW 14.2 (11.6-14.8) % Plt Count 218 (150-400) X10^3/uL Neut % (Auto) 44.4 L (50-75) % Lymph % (Auto) 47.0 H (25-40) % [place] % (Auto) 4.4 (3-14) % Eos % (Auto) 3.3 (2-4) % Baso % (Auto) 0.9 (0-2) % Neut # (Auto) 3800 (2041-2665) /uL Lymph # (Auto) 4100 (0304-3797) /uL [place] # (Auto) 400 (0-900) /uL Eos # (Auto) 300 (0-450) /uL Baso # (Auto) 100 (0-100) /uL Sodium 144 (137-145) mmol/L Potassium 3.9 (3.4-5.1) mmol/L Chloride 108 H (98-107) mmol/L Carbon Dioxide 26 (22-32) mmol/L BUN 13 (9-20) mg/dL Creatinine 0.80 (0.66-1.25) mg/dL Estimated GFR > 60.0 (>60) mL/min BUN/Creatinine Ratio 16.3 (6-22) Glucose 92 (70-100) mg/dL Calcium 9.5 (8.4-10.2) mg/dL Total Bilirubin 0.2 (0.2-1.3) mg/dL AST 23 (17-59) IU/L ALT 24 (<50) IU/L Alkaline Phosphatase 68 (38-126) U/L Total Protein 7.1 (6.3-8.2) g/dL Albumin 4.4 (3.5-5.0) g/dL Globulin 2.7 (1.7-4.1) g/dL Albumin/Globulin Ratio 1.6 (1.0-2.8) Lipase 161 (23-300) U/L U Opiates 300ng/mL cut Negative (Negative) Ur Oxycodone Screen Negative (Negative) Urine Methadone Screen Negative (Negative) Ur Barbiturates Screen Negative (Negative) U Tricyclic Antidepress Negative (Negative) Ur Phencyclidine Scrn Negative (Negative) Ur Amphetamines Screen Negative (Negative) U Methamphetamines Scrn Negative (Negative) Ur MDMA Scrn (Ecstasy) Negative (Negative) U Benzodiazepines Scrn Positive H (Negative) Urine Cocaine Screen Positive H (Negative) U Marijuana (THC) Screen Negative (Negative) Ethyl Alcohol < 10 ( - 10) mg/dL SARS-CoV-2 (PCR) (Negative) 05/20/21 Range/Units 11:14 WBC (4.5-11.0) X10^3/uL RBC (4.5-5.9) X10^6/uL Hgb (13.5-17.5) g/dL Hct (41-53) % MCV (80-100) fL MCH (26-34) PG MCHC (30-36) % RDW (11.6-14.8) % Plt Count (150-400) X10^3/uL Neut % (Auto) (50-75) % Lymph % (Auto) (25-40) % [place] % (Auto) (3-14) % Eos % (Auto) (2-4) % Baso % (Auto) (0-2) % Neut # (Auto) (6119-8489) /uL Lymph # (Auto) (1846-7808) /uL [place] # (Auto) (0-900) /uL Eos # (Auto) (0-450) /uL Baso # (Auto) (0-100) /uL Sodium (137-145) mmol/L Potassium (3.4-5.1) mmol/L Chloride (98-107) mmol/L Carbon Dioxide (22-32) mmol/L BUN (9-20) mg/dL Creatinine (0.66-1.25) mg/dL Estimated GFR (>60) mL/min BUN/Creatinine Ratio (6-22) Glucose (70-100) mg/dL Calcium (8.4-10.2) mg/dL Total Bilirubin (0.2-1.3) mg/dL AST (17-59) IU/L ALT (<50) IU/L Alkaline Phosphatase (38-126) U/L Total Protein (6.3-8.2) g/dL Albumin (3.5-5.0) g/dL Globulin (1.7-4.1) g/dL Albumin/Globulin Ratio (1.0-2.8) Lipase (23-300) U/L U Opiates 300ng/mL cut (Negative) Ur Oxycodone Screen (Negative) Urine Methadone Screen (Negative) Ur Barbiturates Screen (Negative) U Tricyclic Antidepress (Negative) Ur Phencyclidine Scrn (Negative) Ur Amphetamines Screen (Negative) U Methamphetamines Scrn (Negative) Ur MDMA Scrn (Ecstasy) (Negative) U Benzodiazepines Scrn (Negative) Urine Cocaine Screen (Negative) U Marijuana (THC) Screen (Negative) Ethyl Alcohol ( - 10) mg/dL SARS-CoV-2 (PCR) Negative (Negative) <Clifford Avila, - Last Filed: 05/20/21 13:20> Critical Care Time Critical Care Time: Yes Total Critical Care Time: 30 Attestation: The high probability of a clinically significant, sudden or life threatening deterioration of the [Psych/CV] system(s) required my full and direct attention, intervention and personal management. The aggregate critical care time was [30] minutes. This time is in addition to time spent performing reported procedures but includes the following: [x] Data Review and interpretation [x] Patient assessment and monitoring of vital signs [x] Documentation [x] Medication orders and management Discharge Plan Departure Patient Disposition: Home Clinical Impression: Suicidal ideation Instructions: DI for Suicidal Ideation-Adult Activity Restrictions/Additional Instructions: Please proceed directly from our emergency department to [facility] in [place]. You have been given directions and their phone number is [phone] Please proceed directly there, do not stop anywhere and route, this may avoid your medical clearance and prevent you from being accepted. Request of the receiving facility I have electronically transmitted if you your prescriptions to help the through the next few days. Their on-site Dr. lobo take care of the rest. Prescriptions: New alprazolam 0.5 mg tablet 0.5 mg PO TID PRN (Reason: anxiety) Qty: 10 RF: 0 buspirone 7.5 mg tablet 7.5 mg PO TID Qty: 10 RF: 0 fluoxetine 20 mg tablet 20 mg PO DAILY Qty: 3 RF: 0 lamotrigine 100 mg tablet 100 mg PO DAILY Qty: 3 RF: 0 trazodone 50 mg tablet 25 mg PO BEDTIME Qty: 3 RF: 0 No Action trazodone 50 mg tablet 25 mg PO BEDTIME RF: 0 alprazolam 0.5 mg tablet 0.5 mg PO TID PRN (Reason: Anxiety) RF: 0 docusate sodium [Colace] 100 mg capsule 100 mg PO DAILY Qty: 20 RF: 0 oxycodone 5 mg tablet 5 mg PO Q6H PRN (Reason: pain) Qty: 20 RF: 0 cyclobenzaprine 10 mg tablet 10 mg PO TID PRN (Reason: Spasms) RF: 0 diclofenac potassium 50 mg tablet 50 mg PO TID PRN (Reason: Pain (Scale Score 1-3)) RF: 0 buspirone 7.5 mg tablet 7.5 mg PO TID RF: 0 propranolol 10 mg tablet 10 mg PO BID RF: 0 fluoxetine 20 mg capsule 20 mg PO DAILY RF: 0 lamotrigine 25 mg tablet 100 mg PO DAILY RF: 0 indomethacin 75 mg capsule, extended release 75 mg PO BID PRN (Reason: Pain (Scale Score 1-3)) RF: 0 Referrals: Roberta Luke DO [Primary Care Provider] -
[2021-05-19] MEDS: lamoTRIgine 100 MG TABLET PO (19:45)
[2021-05-19] MEDS: LORazepam 0.5 MG TABLET PO (19:46)
[2021-05-19 20:10] LABS: Add Manual Diff / Slide Review NO; Basophils Absolute Auto 100 /uL (0-100); Basophils Percent Auto 0.9 % (0-2); Eosinophils Absolute Auto 300 /uL (0-450); Eosinophils Percent Auto 3.3 % (2-4); Hematocrit 44.6 % (41-53); Hemoglobin 15.6 g/dL (13.5-17.5); Lymphocytes Absolute Auto 4100 /uL (1100-4500); Mean Corpuscular HGB Conc 34.9 % (30-36); Mean Corpuscular Hemoglobin 31.7 PG (26-34); Mean Corpuscular Volume 90.8 fL (80-100); Monocytes Absolute Auto 400 /uL (0-900); Monocytes Percent Auto 4.4 % (3-14); Neutrophils Absolute Auto 3800 /uL (1500-7000); Neutrophils Percent Auto 44.4 % (50-75); Platelet Count 218 X10^3/uL (150-400); Red Blood Cell Count 4.92 X10^6/uL (4.5-5.9); Red Cell Distribution Width 14.2 % (11.6-14.8); White Blood Cell Count 8.7 X10^3/uL (4.5-11.0)
[2021-05-19 20:23] LABS: Alanine Aminotransferase 24 IU/L (<50); Albumin 4.4 g/dL (3.5-5.0); Albumin Globulin Ratio 1.6 (1.0-2.8); Alkaline Phosphatase 68 U/L (38-126); Aspartate Aminotransferase 23 IU/L (17-59); BUN Creatinine Ratio 16.3 (6-22); Bilirubin Total 0.2 mg/dL (0.2-1.3); Blood Urea Nitrogen 13 mg/dL (9-20); Calcium 9.5 mg/dL (8.4-10.2); Carbon Dioxide 26 mmol/L (22-32); Chloride 108 mmol/L (98-107); Estimated Glomerular Filt Rate > 60.0 mL/min (>60); Ethanol (ETOH) < 10 mg/dL; Globulin 2.7 g/dL (1.7-4.1); Glucose 92 mg/dL (70-100); HEMOLYSIS 23 (0-50); Lipase 161 U/L (23-300); Potassium 3.9 mmol/L (3.4-5.1); Sodium 144 mmol/L (137-145); Total Protein 7.1 g/dL (6.3-8.2)
[2021-05-20 07:42] LABS: Ur Creatinine Normal (Normal); Ur Specific Gravity Normal (Normal); Urine pH Normal (Normal)
[2021-05-20 07:44] LABS: Urine Tetrahydrocannabinol Negative (Negative)
[2021-05-20 07:45] LABS: UR Morphine/Opiate cutoff 300 Negative (Negative); Urine Amphetamines Negative (Negative); Urine Barbiturates Negative (Negative); Urine Benzodiazepines Positive (Negative); Urine Cocaine Positive (Negative); Urine MDMA Negative (Negative); Urine Methadone Negative (Negative); Urine Methamphetamines Negative (Negative); Urine Oxycodone Negative (Negative); Urine Phencyclidine Negative (Negative); Urine Tricyclic Antidepressant Negative (Negative)
--- NOTE | 2021-05-20 07:46 | PC.NURSE ---
Talking with ER
[2021-05-20] MEDS: ALPRAZolam 0.5 MG TABLET PO (08:49)
[2021-05-20] MEDS: BUSPIRONE 5 MG TABLET 7.5 MG PO (08:50)
[2021-05-20] MEDS: FLUoxetine 20 MG CAPSULE PO (08:51)
[2021-05-20] MEDS: PROPRANOLOL 10 MG TABLET PO (08:52)
[2021-05-20] MEDS: INDOMETHACIN 25 MG CAPSULE 75 MG PO (08:52)
[2021-05-20] MEDS: lamoTRIgine 100 MG TABLET PO (08:52)
--- NOTE | 2021-05-20 09:00 | PC.NURSE ---
Sitting on side of stretcher calmly talking with [employer] TECH
--- NOTE | 2021-05-20 09:21 | PC.NURSE ---
Talking with [employer] MACH[employer] OPERATOR at bedside
[2021-05-20 10:30] VITALS: BP 136/76; PULSE 60; RESP 22; O2SAT 100
--- NOTE | 2021-05-20 10:42 | CM.SWNOTE ---
Addendum entered by CYNTHIA Brown 05/20/21 11:35: ADD: Return call from Cameron at [facility] saying once pt's COVID swab returns they can accept pt and due to his S.I. do not feel comfortable with pt transporting himself. Request if ED MD agreeable to writing 3 day supply of any home meds pt doesnt have on him and then faxing to [facility] to fax [phone] and request if pt could arrive around 1400. FORTINO updated MIGUE Brian on above and she will follow up with confirming pt agreeable to d/c to [facility] and discussing meds with ED MD and already completed COVID swab. BF Addendum entered by CYNTHIA Brown 05/20/21 10:58: ADD: FORTINO contacted these following facilities: [facility] in [place]: currently deep cleaning due to a COVID contamination and unsure if they can accept new admits today but will call back after 1300. [facility]: have openings and completed phone screen and DRAWBENCH OPERATOR faxed records to [phone]. [facility]: full [facility]: openings and willing to review for shared room. Faxed to [phone]. [facility]: openings and willing to review. Faxed to [phone] FORTINO to follow for above reviews to then discuss with pt Crisis bed vs Inpt MH tx for d/c today pending pt's emotional status/suicidal ideation. BF Original Note: Patient is a 41 yo male who was admitted on 05/19/21 to [facility] for suicidal ideation. Pt has [employer] for insurance and his PCP is Roberta Luke at [facility]. EMR was reviewed. Per ED MD, PROCUREMENT TECHNICIAN consult ordered towards determining safe d/c plan after mental health assessment. PROCUREMENT TECHNICIAN met bedside with pt in the ED and see assessment below. PROCUREMENT TECHNICIAN to begin working on determining bed availability for Crisis Stabilization at [facility] vs Inpt MH tx. CYNTHIA Brown Discharge Planning/Care Management ED Psychiatric Symptoms Assessment Start: 05/19/21 18:56 Freq: Status: Active Protocol: Document 05/19/21 19:11 AT (Rec: 05/19/21 19:30 AT [id number]) Psychiatric Symptoms Assessment Symptoms/Complaint Suicidal Ideation Duration Changing Over Time History Of Same Yes Context Not Taking Psychiatric Medications,Significant Life Stressor Associated Psychiatric Symptoms Depression If Self Harm Admits Thoughts of Self Harm, Has Plans Details of Plan Jump off a bridge. Level of Consciousness Alert,Appropriate,Awake Patient Orientation Name,Age,Birthday,Month,Date, Year,Day of Week,Place, Situation Patient Behavior/Mood Crying/Tearful Ability to Follow Directions Excellent Patient Cognition Impaired No Affect Description Depressed Patient Appearance Well Groomed Hallucination Type None Thought Process: Normal Feelings of Hopelessness Yes Homicidal Ideation None Nausea/Vomiting None Document 05/19/21 21:27 AT (Rec: 05/19/21 21:28 AT [email or web address]) Psychiatric Symptoms Assessment Symptoms/Complaint Suicidal Ideation Duration Changing Over Time History Of Same Yes Context Not Taking Psychiatric Medications,Significant Life Stressor Associated Psychiatric Symptoms Depression If Self Harm Admits Thoughts of Self Harm, Has Plans Level of Consciousness Alert,Appropriate,Awake Patient Orientation Name,Age,Birthday,Month,Date, Year,Day of Week,Place, Situation Patient Behavior/Mood Anxious Ability to Follow Directions Excellent Patient Cognition Impaired No Affect Description Calm Thought Process: Normal Nausea/Vomiting None Document 05/19/21 23:15 KB (Rec: 05/20/21 01:22 KB [id number]) Psychiatric Symptoms Assessment Symptoms/Complaint Suicidal Ideation Onset 0800 Duration Getting Worse History Of Same No Context Not Taking Psychiatric Medications,Significant Life Stressor Associated Psychiatric Symptoms Depression,Suicidal Ideation If Self Harm Has Plans Details of Plan Patient states he broke up with his recently, his family has covid so no one to confide in or seek support and his SI plan is to jump off the bridge. Level of Consciousness Alert,Appropriate Patient Orientation Name,Birthday,Place,Situation Patient Behavior/Mood Cooperative,Crying/Tearful Ability to Follow Directions Good Patient Cognition Impaired No Affect Description Depressed Patient Appearance Well Groomed Hallucination Type None Depressive Symptoms Crying Spells,Difficulty Concentrating,Low Self Esteem Major Depressive Episode Yes Feelings of Hopelessness Yes Suicidal Ideation Frequent Suicide Plan Clear Nausea/Vomiting None Document 05/20/21 01:23 KB (Rec: 05/20/21 01:25 KB [id number]) Psychiatric Symptoms Assessment Symptoms/Complaint Suicidal Ideation Duration Getting Worse Context Not Taking Psychiatric Medications,Significant Life Stressor Associated Psychiatric Symptoms Depression,Suicidal Ideation If Self Harm Has Plans Details of Plan SI plan is to jump off the bridge. Level of Consciousness Appropriate,Inappropriate Patient Behavior/Mood Asleep Ability to Follow Directions Good Patient Cognition Impaired No Affect Description Depressed Patient Appearance Well Groomed Depressive Symptoms Crying Spells,Low Self Esteem, Unhappiness Major Depressive Episode Yes Feelings of Hopelessness Yes Suicidal Ideation Frequent Suicide Plan Clear Nausea/Vomiting None Document 05/20/21 03:16 KB (Rec: 05/20/21 03:20 KB [id number]) Psychiatric Symptoms Assessment Symptoms/Complaint Suicidal Ideation Duration Constant Context Not Taking Psychiatric Medications Associated Psychiatric Symptoms Depression,Suicidal Ideation Details of Plan Pt states his plan is to jump off the bridge. Level of Consciousness Appropriate Patient Behavior/Mood Asleep Ability to Follow Directions Good Patient Cognition Impaired No Affect Description Depressed,Tearful Patient Appearance Well Groomed Depressive Symptoms Crying Spells,Recurrent Thoughts of or Suicide Major Depressive Episode Yes Suicidal Ideation Frequent Suicide Plan Clear Nausea/Vomiting None Document 05/20/21 05:32 KB (Rec: 05/20/21 05:38 KB [id number]) Psychiatric Symptoms Assessment Symptoms/Complaint Suicidal Ideation Duration Constant Context Not Taking Psychiatric Medications Associated Psychiatric Symptoms Depression,Suicidal Ideation If Self Harm Has Plans Details of Plan Pt states he will jump off the bridge. Patient Behavior/Mood Asleep Ability to Follow Directions Good Patient Cognition Impaired No Affect Description Depressed Depressive Symptoms Crying Spells,Insomnia Major Depressive Episode Yes Suicidal Ideation Frequent Suicide Plan Clear Nausea/Vomiting None Document 05/20/21 07:30 RLS (Rec: 05/20/21 10:08 RLS [id number]) Psychiatric Symptoms Assessment Symptoms/Complaint Suicidal Ideation Duration Changing Over Time History Of Same Yes Context Significant Life Stressor Improves With Medication,Therapy Worsens With Nothing Associated Psychiatric Symptoms Depression,Suicidal Ideation Associated Symptoms Denies Other Symptoms If Self Harm Has Plans Details of Plan stated that he would jump off the bridge. slightly anxious this am Level of Consciousness Appropriate,Awake,Follows Commands Patient Orientation Name,Age,Birthday,Month,Date, Year,Day of Week,Place, Situation Patient Behavior/Mood Cooperative,Restless Ability to Follow Directions Excellent Patient Cognition Impaired No Affect Description Anxious,Depressed Patient Appearance Well Groomed Hallucination Type None Delusion Description Not Present Thought Process: Goal-directed Depressive Symptoms Feelings of Worthlessness, Hopelessness,Unhappiness Major Depressive Episode Yes Feelings of Hopelessness Yes Suicidal Ideation Frequent Suicide Plan Clear Homicidal Ideation None Nausea/Vomiting None PROCUREMENT TECHNICIAN - Incident Response Engineer Assessment Start: 05/20/21 10:28 Freq: Status: Active Protocol: Document 05/20/21 10:28 BF (Rec: 05/20/21 10:42 BF [id number]) PROCUREMENT TECHNICIAN/Incident Response Engineer Assessment Start date 05/20/21 Visit Start Time 08:45 End date 05/20/21 Visit End Time 09:30 Total time Care Management spent on 120 min patient visit-in minutes Presenting Problem Pt arrived to ED with suicidal ideations and thoughts of driving off [place] Precipitating Event(s) Pt recently returned to work light duty after months of disability from work related injury, marital issues and possible seperation, and financial stress from missing work and fighting with L&I. Patient Strengths Good sense of humor, good insight and already established with med management and therapy. 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 Current Behavioral Health Provider(s) Psychiatrist for therapy, PCP Include Facility, Provider, Ph. # Roberta Luke at [facility] manages pt's meds Psychiatric Hospitalizations (date(s)/ Pt states he has hx of Inpt MH location) tx once when he was 17 yo Psychosocial information & Support Pt works for a [employer] and is but currently their relationship is strained. Pt states he does not have much contact with his mother but talks regularly with his father. School/Work Works for [employer], currently on light duty due to work related injury Presenting Problem Denies but UDS positive for cocaine Legal Matters - Outstanding Issues Denies Orientation (Person/Place/Time) A&O x4 Stated Mood Depressed, anxious, overwhelmed, suicidal ideation Affect (Congruent with Mood?) Congruent, easily tearful when discussing triggers and life stressors, but good sense of humor when talking about other topics Thought Content - Specify/Describe States he is having difficulty Obsessions, Delusions, Hallucinations with looping suicidal ideation but feels better after a night in the ED for stabilization Thought Processes (Vsrgrnn-Ubrpjdnn-Mywk Logical with good insight Cztqpdql-Lernizge-Ikcrfuxeon- Etfdilbldalcxc-Itppqct-Stwcxlehppfn- Thought Blocking) Speech (Jdwldp-Ksby-Lebaipc-Rapid-Soft- Normal Loud-Pressured) Motor (Eqmzit-Mxbbcozqe-Hnli-Other) Normal to slow Insight (Juap-Obik-Yrwd/Limited) Good insight Judgement (Bxcn-Goje-Fhhk/Limited) Judgment is fair Impulse Control (Adequate-Impaired) Pt has some impaired impulse control as evidenced by inability to distract from suicidal ideations Memory (Bqfzmgkdq-Xpvfuy-Mracea, Immediate Impaired-Intact) Concentration (Intact-Impaired) Intact Behavior (Appropriate-Inappropriate) Appropriate, calm and cooperative and appreciative but pt confirms he is getting tired again and requests to lay down. Suicidal Ideation (Plan) Yes Homicidal Ideation (Plan) No Intervention PROCUREMENT TECHNICIAN met bedside with pt in the ED and he is able to participate in goal directed discussion. Pt calm and alert and becomes tearful when discussing his stressors of marital discord and fiancial burdens while he has been off work from work related injury. Pt confirms that he has felt anxious and depressed from a young age and is saddened from the lack of communication with his own mother since his parents were . Pt states his spouse is supportive but his inlaws have an unhealthy relationship with my and they are very controlling. Pt acknowledges one Inpt MH tx stay at [facility] when he was 17 but denies any other hx of Inpt MH or crisis stabilization. Pt has actively sought out therapy for skill building and coping as well as med management for his depression and anxiety. Pt confirms he is not actively having suicidal ideation and feels that staying the night in the ED for stabilization has been helpful, I'm feeling better. Although pt unsure if he is safe for d/c back to community with established outpt providers and friend support. PROCUREMENT TECHNICIAN discussed possible options of Mobile Crisis Outreach Team (MCOT) and increased friend support vs Triage Crisis Stabilization bed vs Inpt MH tx. Pt states he needs to review the provided resources towards determining the safest d/c plan and agreeable with PROCUREMENT TECHNICIAN inquiring with Crisis Stabilization and Inpt MH facilities to determine which have openings towards determining best d/c plan from the ED. RA Plan PROCUREMENT TECHNICIAN updated ED MD and discussed potential for inquiring with facilities about open bed availability and ED MD agreeable.
[2021-05-20 11:55] LABS: COVID19 -Nasal RAPID Negative (Negative)
--- NOTE | 2021-05-20 12:04 | PC.NURSE ---
sleeping lunch food try set on table next to bed
--- NOTE | 2021-05-20 12:59 | PC.NURSE ---
Just spoke with ER MD, laying on bed calmly on phone
== END 2021-05-20 14:02 | disposition home or self-care (01) ==
PROVIDERS: Emergency Medicine; Emergency Provider Emergency Medicine; PCP Family Medicine
DX: R45.851 Suicidal ideations (principal); Z20.822 Contact with and (suspected) exposure to COVID-19
CPT/HCPCS: 36415; 80053; 80305; 80320; 83690; 85025; 87635; 99284; 99291; C9803

== ENCOUNTER 2024-11-15 10:40 | Emergency (ER) | payer OTHER, SELFPAY ==
[2024-11-15 10:44] VITALS: PULSE 102; O2SAT 97
[2024-11-15 10:45] VITALS: BP 142/91; PULSE 103; O2SAT 97
--- NOTE | 2024-11-15 10:49 | ED.PSYCH ---
HPI - Psych General Chief Complaint: Psychiatric Symptoms Stated Complaint: IVORY Time Seen by Provider: 11/15/24 10:45 Source: patient, RN notes reviewed and old records reviewed Mode of arrival: other (law enforcement) Limitations: no limitations History of Present Illness HPI Narrative: 44-year-old male history of mental health issues presents with complaint of auditory hallucinations. Patient was had them in the past but not consistently. He describes some sometimes more as like a mumbling but do sometimes tell him that he is useless or tell him he to stop being around. States he had a lot of alcohol on Friday and intentionally ingested quite a bit of Xanax with a goal to kill himself. He was had persistent thoughts of harming himself with plan to jump off this has been bridge is brought by law enforcement. Patient had reached out to primary care he states the call was disconnected and they had log in for his missed new as wellness check. Patient presents with law enforcement. Patient is requesting help and interested in inpatient stay. Patient states he has been taking his daily medications. He has not had any new changes to his medications states he has been taking them daily. Does follow up with psychiatrist. Was attending counseling regularly but became cost prohibitive. He does find it helpful when he has not available but states it was too much at 400 dollars a month. Patient has had prior inpatient stays thinks that that would be helpful for him today. He does live with his family and children. He states no firearms in the house. Denies thoughts of harming others. Current home medications include lorazepam, lithium, olanzapine, lamotrigine, rizatriptan PRN, Ajovy, metformin, tamsulosin, aspirin 81 mg daily Related Data Home Medications Medication Instructions Recorded Confirmed alprazolam 0.5 mg tablet 0.5 mg PO TID PRN Anxiety 12/22/20 05/20/21 trazodone 50 mg tablet 25 mg PO BEDTIME 12/22/20 05/20/21 buspirone 7.5 mg tablet 7.5 mg PO TID 05/20/21 05/20/21 cyclobenzaprine 10 mg tablet 10 mg PO TID PRN Spasms 05/20/21 05/20/21 diclofenac potassium 50 mg tablet 50 mg PO TID PRN Pain (Scale Score 05/20/21 05/20/21 1-3) fluoxetine 20 mg capsule 20 mg PO DAILY 05/20/21 05/20/21 indomethacin 75 mg 75 mg PO BID PRN Pain (Scale Score 05/20/21 05/20/21 capsule,extended release 1-3) lamotrigine 25 mg tablet 100 mg PO DAILY 05/20/21 05/20/21 propranolol 10 mg tablet 10 mg PO BID 05/20/21 05/20/21 Previous Rx's Medication Instructions Recorded docusate sodium 100 mg capsule 100 mg PO DAILY #20 caps 12/22/20 (Colace) oxycodone 5 mg tablet 5 mg PO Q6H PRN pain #20 tabs 12/22/20 alprazolam 0.5 mg tablet 0.5 mg PO TID PRN anxiety #10 tabs 05/20/21 buspirone 7.5 mg tablet 7.5 mg PO TID #10 tabs 05/20/21 fluoxetine 20 mg tablet 20 mg PO DAILY #3 tabs 05/20/21 lamotrigine 100 mg tablet 100 mg PO DAILY #3 tabs 05/20/21 trazodone 50 mg tablet 25 mg (1/2 x 50 mg) PO BEDTIME #3 05/20/21 tabs Allergies Allergy/AdvReac Type Severity Reaction Status Date / Time wheat Allergy Verified 11/15/24 11:46 hydrocodone [From Vicodin] AdvReac Mild ITCHING Verified 05/19/21 18:56 Review of Systems Review of Systems ROS Unobtainable: All systems reviewed & are unremarkable except as noted in HPI and below Patient History Medical History Low back pain Anxiety Migraines Social History Smoking Status: Never smoker alcohol intake frequency: 0-2 drinks per day Exam Narrative Exam Narrative: GENERAL: Alert and oriented x three, male in mild distress HEENT: Head normocephalic, atraumatic, EOMI, pupils reactive, face symmetric, moist mucous membranes NECK: Supple, full range of motion CARDIOVASCULAR: Regular rate and rhythm without murmurs, rubs or gallops. RESPIRATORY: Breath sounds equal bilaterally, no wheezes rales or rhonchi. ABDOMEN: Soft, nontender. Normoactive bowel sounds all 4 quadrants. No guarding or rebound, rigidity, no mass : No CVA tenderness EXTREMITIES: Normal range of motion, no clubbing or edema. Neurovascularly intact NEUROLOGICAL: Cranial nerves II through XII grossly intact. Moving all extremities SKIN: Warm, dry, no petechiae, no rashes or lesions. PSYCH: Describes depressive thoughts with suicidal ideation, does note a plan has not intent but is seeking help. Patient describes auditory hallucinations, no visual hallucinations. No homicidal intent or ideation Initial Vital Signs Initial Vital Signs: Vital Signs Pulse Rate 102 H 11/15/24 10:44 Pulse Oximetry 97 11/15/24 10:44 Course Orders Ordered: ED Orders 11/15/24 10:56 Consult to SENIOR SEARCH MARKETING ANALYST - Home Health Administrator Stat 11/15/24 11:00 Acetaminophen Stat Complete Blood Count AUTO DIFF Stat Comprehensive Metabolic Panel Stat Ethanol (ETOH) Stat Free T4, Direct Thyroxine Stat [place] Stat Salicylate Stat Thyroid Stimulating Hormone Stat 11/15/24 11:13 Urine Drug Screen, Rapid Stat 11/15/24 13:26 Covid-19 + FLU A/B + RSV - PCR Stat Vital Signs Vital signs: Vital Signs - 8 hr 11/15/24 10:45 11/15/24 10:45 11/15/24 10:51 Temperature 97.8 F Pulse Rate 103 H 105 H Respiratory Rate 18 Blood Pressure 142/91 H 142/91 H Pulse Oximetry 97 97 Oxygen Delivery Method Room Air 11/15/24 15:37 Temperature 98.6 F Pulse Rate 80 Respiratory Rate 16 Blood Pressure 131/88 Pulse Oximetry 98 Oxygen Delivery Method Room Air MDM - Psych Lab Data 11/15/24 11:00 11/15/24 11:00 Labs: Lab Results 11/15/24 11/15/24 11/15/24 Range/Units 11:00 11:13 13:26 WBC 8.0 (4.5-11.0) X10^3/uL RBC 5.00 (4.5-5.9) X10^6/uL Hgb 15.6 (13.5-17.5) g/dL Hct 46.6 (41-53) % MCV 93.1 (80-100) fL MCH 31.2 (26-34) PG MCHC 33.5 (30-36) % RDW 14.3 (11.6-14.8) % Plt Count 235 (150-400) X10^3/uL Neut % (Auto) 62.1 (50-75) % Lymph % (Auto) 30.2 (25-40) % [place] % (Auto) 4.8 (3-14) % Eos % (Auto) 2.5 (2-4) % Baso % (Auto) 0.4 (0-2) % Neut # (Auto) 5000 (4091-3632) /uL Lymph # (Auto) 2400 (9261-1302) /uL [place] # (Auto) 400 (0-900) /uL Eos # (Auto) 200 (0-450) /uL Baso # (Auto) 0 (0-100) /uL Sodium 141 (137-145) mmol/L Potassium 4.2 (3.4-5.1) mmol/L Chloride 107 (98-107) mmol/L Carbon Dioxide 23 (22-32) mmol/L BUN 16 (9-20) mg/dL Creatinine 0.89 (0.66-1.25) mg/dL Estimated GFR > 60 (>60) mL/min BUN/Creatinine Ratio 18.0 (6-22) Glucose 106 H (70-100) mg/dL Calcium 9.5 (8.4-10.2) mg/dL Total Bilirubin 0.5 (0.2-1.3) mg/dL AST 29 (17-59) IU/L ALT 26 (<50) IU/L Alkaline Phosphatase 68 (38-126) U/L Total Protein 7.3 (6.3-8.2) g/dL Albumin 4.6 (3.5-5.0) g/dL Globulin 2.7 (1.7-4.1) g/dL Albumin/Globulin Ratio 1.7 (1.0-2.8) TSH 0.366 L (0.47-4.68) uIU/mL Free T4 0.98 (0.78-2.19) ng/dL Salicylates < 1.0 (<20) mg/dL U Opiates 300ng/mL cut Negative (Negative) Ur Oxycodone Screen Negative (Negative) Urine Methadone Screen Negative (Negative) Acetaminophen < 10 (10-30) ug/mL Ur Barbiturates Screen Negative (Negative) U Tricyclic Antidepress Negative (Negative) Ur Phencyclidine Scrn Negative (Negative) Ur Amphetamines Screen Negative (Negative) U Methamphetamines Scrn Negative (Negative) Ur MDMA Scrn (Ecstasy) Negative (Negative) U Benzodiazepines Scrn Positive H (Negative) [place] 0.6 (0.6-1.2) mmol/L Urine Cocaine Screen Positive H (Negative) U Marijuana (THC) Screen Positive H (Negative) Urine pH Normal (Normal) Urine Specific [place] Normal (Normal) Ethyl Alcohol < 10 ( - 10) mg/dL Ur Creatinine Normal (Normal) SARS-CoV-2 (PCR) Negative (Negative) Influenza A (RT-PCR) Flu a negative (NEGATIVE) Influenza B (RT-PCR) Flu b negative (NEGATIVE) RSV (PCR) Negative (Negative) Urine Dip Bedside Urine Glucose Negative Bedside Urine Bilirubin - Negative Bedside Urine Ketone - Negative Urine Specific [place] 1.015 Bedside Urine Occult Blood +/- Bedside Urine pH 6.0 Bedside Urine Protein - Negative Bedside Urine Urobilinogen - Negative Bedside Urine Nitrite - Negative Bedside Urine Leukocytes - Negative Esterase MDM Narrative Medical decision making narrative: 44-year-old male presents with increasing auditory hallucinations, suicidal ideation with a plan to [place]. Patient has had inpatient stays in the past he thinks this would be the most helpful thing for him now. He states he has been taking his medications regularly still following with a his prescribing provider but has not been able to attend counseling secondary to cost. He was denies any new changes to medications. Labs show normal white count hemoglobin and platelets, chemistries are appropriate BUN and creatinine normal glucose is 106 LFTs are negative, TSH and free T4 [place] level is normal Salicylates, ETOH and Tylenol are all negative. Patient is positive for benzos, cocaine and marijuana. Patient was medically cleared. Patient accepted at [facility] by Cameron Montez. Discharge Plan Departure Patient Disposition: Xfer Psychiatric Hosp Clinical Impression: Suicidal ideation, Auditory hallucination Prescriptions: No Action trazodone 50 mg tablet 25 mg PO BEDTIME Patient Comments: take half tablet by mouth nightly alprazolam 0.5 mg tablet 0.5 mg PO TID PRN (Reason: Anxiety) Patient Comments: TAKE 1 TABLET BY MOUTH THREE TIMES DAILY NEEDED FOR ANXIETY docusate sodium [Colace] 100 mg capsule 100 mg PO DAILY Qty: 20 0RF oxycodone 5 mg tablet 5 mg PO Q6H PRN (Reason: pain) Qty: 20 0RF cyclobenzaprine 10 mg tablet 10 mg PO TID PRN (Reason: Spasms) diclofenac potassium 50 mg tablet 50 mg PO TID PRN (Reason: Pain (Scale Score 1-3)) buspirone 7.5 mg tablet 7.5 mg PO TID propranolol 10 mg tablet 10 mg PO BID fluoxetine 20 mg capsule 20 mg PO DAILY lamotrigine 25 mg tablet 100 mg PO DAILY indomethacin 75 mg capsule, extended release 75 mg PO BID PRN (Reason: Pain (Scale Score 1-3)) alprazolam 0.5 mg tablet 0.5 mg PO TID PRN (Reason: anxiety) Qty: 10 0RF buspirone 7.5 mg tablet 7.5 mg PO TID Qty: 10 0RF fluoxetine 20 mg tablet 20 mg PO DAILY Qty: 3 0RF lamotrigine 100 mg tablet 100 mg PO DAILY Qty: 3 0RF trazodone 50 mg tablet 25 mg PO BEDTIME Qty: 3 0RF Referrals: Roberta Kumar DO [Primary Care Provider] -
[2024-11-15 10:51] VITALS: BP 142/91; PULSE 105; RESP 18; TEMP 36.6; O2SAT 97; BMI 36.2
[2024-11-15 11:16] LABS: Add Manual Diff / Slide Review NO; Basophils Absolute Auto 0 /uL (0-100); Basophils Percent Auto 0.4 % (0-2); Eosinophils Absolute Auto 200 /uL (0-450); Eosinophils Percent Auto 2.5 % (2-4); Hematocrit 46.6 % (41-53); Hemoglobin 15.6 g/dL (13.5-17.5); Lymphocytes Absolute Auto 2400 /uL (1100-4500); Lymphocytes Percent Auto 30.2 % (25-40); Mean Corpuscular HGB Conc 33.5 % (30-36); Mean Corpuscular Hemoglobin 31.2 PG (26-34); Mean Corpuscular Volume 93.1 fL (80-100); Monocytes Absolute Auto 400 /uL (0-900); Monocytes Percent Auto 4.8 % (3-14); Neutrophils Absolute Auto 5000 /uL (1500-7000); Neutrophils Percent Auto 62.1 % (50-75); Platelet Count 235 X10^3/uL (150-400); Red Cell Distribution Width 14.3 % (11.6-14.8)
[2024-11-15 11:25] LABS: Acetaminophen < 10 ug/mL (10-30); Alanine Aminotransferase 26 IU/L (<50); Albumin 4.6 g/dL (3.5-5.0); Albumin Globulin Ratio 1.7 (1.0-2.8); Alkaline Phosphatase 68 U/L (38-126); Aspartate Aminotransferase 29 IU/L (17-59); Bilirubin Total 0.5 mg/dL (0.2-1.3); Blood Urea Nitrogen 16 mg/dL (9-20); Calcium 9.5 mg/dL (8.4-10.2); Carbon Dioxide 23 mmol/L (22-32); Chloride 107 mmol/L (98-107); Estimated Glomerular Filt Rate > 60 mL/min (>60); Ethanol (ETOH) < 10 mg/dL; Globulin 2.7 g/dL (1.7-4.1); Glucose 106 mg/dL (70-100); HEMOLYSIS 25 (0-50); Potassium 4.2 mmol/L (3.4-5.1); Salicylate < 1.0 mg/dL (<20); Sodium 141 mmol/L (137-145); Total Protein 7.3 g/dL (6.3-8.2)
[2024-11-15 11:28] LABS: Ur Creatinine Normal (Normal); Ur Specific Gravity Normal (Normal); Urine Amphetamines Negative (Negative); Urine Barbiturates Negative (Negative); Urine Benzodiazepines Positive (Negative); Urine Cocaine Positive (Negative); Urine MDMA Negative (Negative); Urine Opiates Negative (Negative); Urine Phencyclidine Negative (Negative); Urine THC Positive (Negative); Urine pH Normal (Normal)
[2024-11-15 11:29] LABS: Urine Methadone Negative (Negative); Urine Oxycodone Negative (Negative); Urine Tricyclic Antidepressant Negative (Negative)
[2024-11-15 11:44] LABS: Free T4, Direct Thyroxine 0.98 ng/dL (0.78-2.19)
[2024-11-15 11:57] LABS: Lithium 0.6 mmol/L (0.6-1.2)
[2024-11-15 11:58] LABS: Thyroid Stimulating Hormone 0.366 uIU/mL (0.47-4.68)
--- NOTE | 2024-11-15 13:46 | PC.NURSE ---
AUTO PARTS COUNTER PERSON Note: QM CONSULTANT in the room.
[2024-11-15 14:06] LABS: Influenza A - CEPHEID Flu A NEGATIVE (NEGATIVE); Influenza B - CEPHEID Flu B NEGATIVE (NEGATIVE); Respiratory Syncytial Virus Negative (Negative)
[2024-11-15 14:07] LABS: COVID-19 CEPHEID 4-PLEX PCR Negative (Negative)
--- NOTE | 2024-11-15 14:25 | CM.SWNOTE ---
ED AIR CONDITIONING SHEET METAL INSTALLER Assessment Note: AIR CONDITIONING SHEET METAL INSTALLER - Diagrammer And Seamer Assessment AIR CONDITIONING SHEET METAL INSTALLER/Diagrammer And Seamer Assessment Time Spent with Patient Start date 11/15/24 Visit Start Time 13:30 End date 11/15/24 Visit End Time 13:52 Total time Care Management spent on 22 minutes patient visit-in minutes Mental Health Screening Include Onset, Duration, Intensity Presenting Problem Patient presents to the ED for suicidal ideation. Patient states he was drinking alcohol and ingesting Xanax at the same time, I don't remember it but I was told that I was trying to do it to kill myself. I was saying, 'What is the point?' Patient has also identified a plan of jumping from [place]. Patient is voluntary, hoping for inpatient treatment. 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 It is not daily but he is regretful. His last drink was Friday, 11/13. Precipitating Event(s) Patient states my bipolar has been real bad lately. Patient explains his service dog, Krista, of 13 years has recently . Patient explained also that he was seeing a therapist on [facility] and has stopped seeing them due to no longer being able to afford it. Patient states he has a history of auditory hallucinations and recently, I have been hearing voices, they are getting louder but can't quite remember or determine what they are saying to him. Patient explains a strong sense of hopelessness, persistent sadness, feelings of worthlessness. Patient Strengths Patient is supported by his , Nat. Patient has good insight and is seeking help. Current Behavioral Health Provider(s) None at this time, was seeing Include Facility, Provider, Ph. # a therapist with [facility]. Patient sees Ashok Nolan DO ( ) for his psychiatric medications. He is currently prescribed: lorazepam, lithium , olanzapine, lamotrigine, rizatriptan PRN, Ajovy, metformin, tamsulosin, aspirin 81 mg daily. Psych. Hx Mental Health and Chemical Patient has a hx of bipolar Dependency disorder and auditory hallucinations. Psychiatric Hospitalizations (date(s)/ None reported. location) Psychosocial information & Support Patient is a 44yo male, Systems resident of [place] with his and alex (19yo). Patient states he is typically introverted and likes to be alone. School/Work Patient reports not working currently. Legal Concerns Legal Matters - Outstanding Issues None reported. Mental Status Orientation (Person/Place/Time) AOx3 Stated Mood Regretful Affect (Congruent with Mood?) Tearful, full range, congruent with mood Thought Content - Specify/Describe Auditory hallucinations: I am Obsessions, Delusions, Hallucinations hearing voices but I can't remember or determine what they are saying. They are getting louder though. Denies visual hallucinations. Thought Processes (Yugsxot-Zebacsoi-Aezf Goal directed, logical Quqstbbc-Pmucchzw-Cglphhgwpz- Vdxouyyuiyphjg-Moksifq-Ujoietcfahwb- Thought Blocking) Speech (Ahqiyk-Jwex-Ngmshzv-Rapid-Soft- Normal, soft Loud-Pressured) Motor (Woosby-Ixspjrwyb-Qbpw-Other) Normal Insight (Qpli-Jdbo-Fraw/Limited) Good Judgement (Matp-Gxsi-Mzng/Limited) Good Impulse Control (Adequate-Impaired) Impaired Memory (Ywftggwbm-Wmytae-Zpnutt, Remote Impaired-Intact) Concentration (Intact-Impaired) Intact Attention (Intact-Impaired) Intact Behavior (Appropriate-Inappropriate) Appropriate Additional Comment Patient is calm, cooperative and communciative during assessment. Risk Assessment Suicidal Ideation (Plan) Yes Homicidal Ideation (Plan) No Comment [place]-SUICIDE SEVERITY RATING SCALE 1) Have you wished you were or wished you could go to sleep and not wake up? YES 2) Have you actually had any thoughts of killing yourself? YES 3) Have you been thinking about how you might do this? YES 4) Have you had these thoughts and had some intention of acting on them? YES 5) Have you started to work out or worked out the details of how to kill yourself? Do you intend to carry out this plan? YES, overdose on Xanax/ ETOH or jump from bridge 6) Have you ever done anything , started to do anything, or prepared to do anything to end your life? YES, overdose on Xanax/ETOH If YES, ask: Was this within the past three months? YES Intervention Intervention Reviewed chart and discussed with ED Provider pt's medical status and discharge needs. ED AIR CONDITIONING SHEET METAL INSTALLER meets with patient. Patient endorses SI, voluntary for placement for psychiatric treatment. ED AIR CONDITIONING SHEET METAL INSTALLER and patient discuss goals of care. Patient explains they are agreeable to receive inpatient behavioral health hospitalization at this time. At this time, it is the opinion of this AIR CONDITIONING SHEET METAL INSTALLER that patient would benefit from inpatient psychiatric hospitalization for SI, medication and crisis stabilization. AIR CONDITIONING SHEET METAL INSTALLER informs ED provider, Dr. Null, who indicates agreement. AIR CONDITIONING SHEET METAL INSTALLER informs MIGUE Lakhani. Plan RA Plan Once patient is medically clear, ED staff will attempt to find inpatient placement for patient. EMILY Muller
--- NOTE | 2024-11-15 15:33 | CM.SWNOTE ---
ED PRESSURE SEALER AND TESTER Note: ED PRESSURE SEALER AND TESTER initiated bed search for inpatient treatment. PRESSURE SEALER AND TESTER calls [facility], it was reported that there are beds available. PRESSURE SEALER AND TESTER calls [facility], it was reported that there are beds available, PRESSURE SEALER AND TESTER completed a phone screening with [facility]. PRESSURE SEALER AND TESTER sent packet for review. PRESSURE SEALER AND TESTER calls [facility], it was reported that there are no beds available until tomorrow, 11/16. PRESSURE SEALER AND TESTER received call from [facility], Intake reports patient is accepted for inpatient treatment, they are requesting patient to arrive at their facility at earliest transport available. Provider: ARPITA Joy RN-RN Report#: [phone] PRESSURE SEALER AND TESTER called [facility] and coordinated BLS transport for patient from ED at 1600, to arrive at facility at 1700. PRESSURE SEALER AND TESTER reviews above with ED Provider, ED RN and patient, all in agreement with plans for voluntary treatment at [facility]. [facility] at 1600. EMILY Muller
[2024-11-15 15:37] VITALS: BP 131/88; PULSE 80; RESP 16; TEMP 37; O2SAT 98
== END 2024-11-15 16:13 ==
PROVIDERS: Emergency Provider Emergency Medicine; PCP Family Medicine
DX: R44.0 Auditory hallucinations (principal); R45.851 Suicidal ideations
CPT/HCPCS: 0241U; 36415; 80053; 80178; 80305; 80320; 80329; 81003; 84439; 84443; 85025; 99284; G0480

== ENCOUNTER 2025-03-01 16:28 | Emergency (ER) | payer OTHER, SELFPAY ==
[2025-03-01 16:48] VITALS: BP 141/91; PULSE 98; RESP 18; TEMP 37; O2SAT 96; BMI 36.6
[2025-03-01] MEDS: KETOROLAC 30 MG/ML VIAL IM (19:46)
== END 2025-03-01 21:08 | disposition left against medical advice (07) ==
PROVIDERS: Emergency Provider Emergency Medicine; PCP Family Medicine
DX: R68.84 Jaw pain (principal)
CPT/HCPCS: 96372; 99283; J1885